=== PATIENT | male | born 1975 | race Caucasian/White ===

== ENCOUNTER 2017-06-09 15:06 | Emergency (ER) | payer OTHER ==
[~2017-06-09] VITALS: Ht 165.1 cm; Wt 83.9 kg
--- NOTE | 2017-06-09 15:13 | PHYS DOC ---
Past Medical History Past Medical History: No Pertinent History Past Surgical History: Other Additional Past Surgical Histo: hernia repair as a child Alcohol Use: Occasionally Drug Use: None Adult General Chief Complaint Chief Complaint: PARTIAL AMPUTATION/AVULSION HPI HPI Patient is a 41 year old male who presents with left thumb laceration. He was cutting with a Skil saw when he cut the tip of his left thumb with a saw. He is unsure his last tetanus shot was. He denies any other injuries. Review of Systems Review of Systems Constitutional: Denies fever or chills [] Eyes: Denies change in visual acuity, redness, or eye pain [] HENT: Denies nasal congestion or sore throat [] Respiratory: Denies cough or shortness of breath [] Cardiovascular: No additional information not addressed in HPI [] GI: Denies abdominal pain, nausea, vomiting, bloody stools or diarrhea [] : Denies dysuria or hematuria [] Musculoskeletal: Denies back pain or joint pain [] Integument: Denies rash, lacerations of the left distal thumb Neurologic: Denies headache, focal weakness or sensory changes [] Endocrine: Denies polyuria or polydipsia [] Current Medications Current Medications Current Medications Medications (Trade) Dose Ordered Sig/[place] Start Time Stop Time Status Last Admin Dose Admin Diphtheria/ Tetanus/Acell Pertussis (Boostrix) 0.5 ml ONCE ONCE 06/09/17 15:45 06/09/17 15:46 DC 06/09/17 15:43 0.5 ML Gelatin (Gelfoam Size 100) 1 each STK-MED ONCE 06/09/17 16:01 06/09/17 16:02 DC Lidocaine/Sodium Bicarbonate (Buffered Lidocaine 1%) 20 ml 1X ONCE 06/09/17 15:45 06/09/17 15:46 DC 06/09/17 15:42 20 ML Allergies Allergies Allergies Coded Allergies Type Severity Reaction Last Updated Verified No Known Drug Allergies 12/04/14 No Physical Exam Physical Exam Constitutional: Well developed, well nourished, no acute distress, non-toxic appearance. [] HENT: Normocephalic, atraumatic, bilateral external ears normal, oropharynx moist, no oral exudates, nose normal. [] Eyes: PERRLA, EOMI, conjunctiva normal, no discharge. [] Neck: Normal range of motion, no tenderness, supple, no stridor. [] Cardiovascular:Heart rate regular rhythm, no murmur [] Lungs & Thorax: Bilateral breath sounds clear to auscultation [] Abdomen: Bowel sounds normal, soft, no tenderness, no masses, no pulsatile masses. [] Skin: Warm, dry, no erythema, no rash. [] Back: No tenderness, no CVA tenderness. [] Extremities: Avulsion type injury of the left thumb with laceration on the lateral aspect of thumb extending into fingernail by 3 mm, no cyanosis, no clubbing, ROM intact, no edema. [] Neurologic: Alert and oriented X 3, normal motor function, normal sensory function, no focal deficits noted. [] Psychologic: Affect normal, judgement normal, mood normal. [] EKG EKG [] Radiology/Procedures Radiology/Procedures [facility] [address] [place] [address] IMAGING REPORT Signed PATIENT: EVE HARRY ACCOUNT: [id number] : 1975 LOCATION: ER AGE: 41 SEX: M EXAM STATUS: PRE ER ORD. PHYSICIAN: TOMER MEDINA MD REASON: laceration PROCEDURE: FINGER(S) LEFT Left thumb, 3 views, 06/09/2017: History: Thumb laceration No fracture or dislocation is identified. There is mild soft tissue deformity at the tip of the thumb. No radiopaque foreign body is evident in the soft tissues. IMPRESSION: No acute bony abnormality is detected. DICTATED and SIGNED BY: CORA DAVID MD DATE: 06/09/17 1532 CC: TOMER MEDINA MD; COLLIN JACOBO Jr, MD ~ Impressions: Thumb laceration with avulsion of the pad of thumb Course & Med Decision Making Course & Med Decision Making Pertinent Labs and Imaging studies reviewed. (See chart for details) Laceration of the left thumb was repaired with 3 simple interrupted sutures, is a avulsion of the pad of the thumb is approximately 1 cm in diameter. Thromboplastin sponge was placed in the avulsion and Vaseline gauze was then applied on top. Patient tolerated procedure well. He will need to have the 3 sutures removed in 7-9 days. His tetanus was updated. Dragon Disclaimer Dragon Disclaimer This electronic medical record was generated, in whole or in part, using a voice recognition dictation system. Laceration Repair Lac Repair Indication: Laceration of left distal thumb with avulsion Procedure: The patient was placed in the appropriate position and anesthesia around the left thumb laceration with 2 mL of buffered lidocaine. The area was then cleansed with sterile saline and iodine scrub. The laceration was 5-0 nylon. The wound area was then dressed with [WOUND COVERING]. Total repaired wound length: 1 cm. The patient tolerated the procedure well. Complications: No complications noted. Departure Departure Impression: Primary Impression: Laceration of thumb with damage to nail Disposition: HOME, SELF-CARE Condition: STABLE Referrals: COLLIN JACOBO Jr, MD (PCP) Patient Instructions: Laceration Care, Adult Additional Instructions: You were seen for your laceration to thumb. This was repaired the best he could be. You have a large area that will take some time to heal. He can use thromboplastin sponges and then Vaseline gauze over top this. Watch for any signs of infection and continue taking your Augmentin as struck to. CBC signs of infection such as swelling, redness, discharge please return back to emergency department. You will need to have the 3 stitches removed in 7-9 days. It was a pleasure taking care of you in the emergency department. Problem Qualifiers Primary Impression: Laceration of thumb with damage to nail Encounter type: initial encounter Foreign body presence: without foreign body Laterality: left Qualified Codes: S61.112A - Laceration without foreign body of left thumb with damage to nail, initial encounter TOMER MEDINA MD Jun 09, 2017 15:13
[2017-06-09 15:23] VITALS: BP 140/75
--- NOTE | 2017-06-09 15:35 | RAD ---
Left thumb, 3 views, 06/09/2017: History: Thumb laceration No fracture or dislocation is identified. There is mild soft tissue deformity at the tip of the thumb. No radiopaque foreign body is evident in the soft tissues. IMPRESSION: No acute bony abnormality is detected.
[2017-06-09] MEDS ORDERED: DIPHTH,PERTUSS(ACELL),TET TOX 0.5 ML DISP.SYRIN. VAX IM ONE (15:45)
[2017-06-09] MEDS ORDERED: LIDOCAINE 1% / SOD BICARB 8.4% 20 ML VIAL. IJ ONE (15:45)
[2017-06-09] MEDS ORDERED: GELATIN SPONGE SIZE 100. ONE (16:01)
[2017-06-09] MEDS ORDERED: GELATIN SPONGE SIZE 12-7MM SPONGE. TP ONE (16:15)
== END 2017-06-09 16:23 | disposition home or self-care (01) ==
LOC: ER 15:06
DX: S61.112A Laceration without foreign body of left thumb with damage to nail, initial encounter (principal); W27.0XXA Contact with workbench tool, initial encounter; Y93.89 Activity, other specified; Y92.89 Other specified places as the place of occurrence of the external cause; Y99.8 Other external cause status
CPT/HCPCS: 12001; 73140; 90471; 90715; 99284-25

== ENCOUNTER 2018-04-06 07:46 | Emergency (ER) | payer OTHER ==
[2018-04-06] MEDS ORDERED: FLUORESCEIN OPHTH TEST STRIP. (08:02)
[2018-04-06] MEDS ORDERED: TETRACAINE 0.5% OPHTH SOLUTION 4ML BOTTLE. (08:02)
[2018-04-06] MEDS: TETRACAINE 0.5% OPHTH SOLUTION 4ML BOTTLE. OU (08:09)
== END 2018-04-06 08:20 | disposition home or self-care (01) ==
LOC: ER 08:20
DX: T15.92XA Foreign body on external eye, part unspecified, left eye, initial encounter (principal); W45.8XXA Other foreign body or object entering through skin, initial encounter; Y93.89 Activity, other specified; Y99.0 Civilian activity done for income or pay; Y92.69 Other specified industrial and construction area as the place of occurrence of the external cause
CPT/HCPCS: 99284